=== PATIENT | male | born 1955 | race African-American/Black ===

== ENCOUNTER 2024-02-05 14:17 | Outpatient (RCR) | payer OTHER, SELFPAY ==
--- NOTE | 2024-02-15 22:41 | CTCFLWUP_ITS ---
Patient: ZENA AZAR : 1955 Page 6 of 8 FOLLOW UP NOTE DATE OF SERVICE: 02/05/2024 NAME: ZENA AZAR ACCOUNT: [id number] : 1955 AGE: 68 INTERVAL HISTORY: Doing well with no new complaints ONCOLOGY HISTORY: DIAGNOSIS: Malignant neoplasm of prostate [ICD10] C61 DATE OF DIAGNOSIS: 06/17/2012 STAGE/TNM: UNK T3NOS NX M0 TREATMENT HISTORY: Care?Plan Start?Date Cycle Day Intent Lupron?22.5?mg?q?3?mon 11/21/2022 1 90 Curative?(adjuvant) Xgeva?120?mg?q?monthly?for?3?months,?followed?by?q?3?months 03/13/2023 1 90 Palliative HISTORY OF PRESENT ILLNESS: Zena Azar is a 68-year-old ENG speaking male has the following oncology history. 06/17/2012: PSA 7.7. Biopsy of the prostate showed [place] score 7 prostate cancer with tumor encroach ing into adipose tissue suggestive of extraprostatic tissue. Perineural invasion was present. 10/26/2012 - 12/21/2012: Mr. Azar was treated with radiation therapy to the prostate here at [facility]. 09/06/2021: PSA 4.73. 12/03/2021: Mr. Azar had CAT scan of the abdomen and pelvis which did not show any obvious metastati c disease. 12/05/2021: Bone scan? 12/07/2021: X-ray of the bilateral hips, pelvis? 02/21/2022: Mr. Azar had a robotic salvage radical prostatectomy: Bilateral pelvic lymph node dissecti on: Bilateral double-J stent placement 04/11/2022: Mr. Azar received first dose of adjuvant Lupron injection. 04/25/2022: PSA less than 0.1 07/17/2022: Mr. Azar received second dose of adjuvant Lupron injection 12/31/2022: Bone scan? 08/08/2003: PSA less than 0.04. OTHER MEDICAL HISTORY/CONDITIONS: DIABETES??PROSTATE?CA PROSTECTECTOMY ?Clone Other Med Hx? FAMILY HISTORY: Patient?denies?family?cancer?history. ?Clone Family Hx? SOCIAL HISTORY: Occupational?History:?RETIRED Education?Level:?Completed High School Marital?Status:? Tobacco?Pack?per?Day:?0 Tobacco?Use?Years:?20 Tobacco?Use:?8?QUIT ETOH?Use:?ETOH/?NOW?CLEAN??X?8?YRS Drug?Note:?PCP [facility] / 13 YRS Social?History?Note:?LIVES?WITH? ?Clone Social Hx? MEDICATIONS: 1. alogliptin - 25 mg 1 tab Twice a Day 2. amlodipine - 5 mg Daily 3. aspirin - 81 mg 1 Capsule Daily 4. atorvastatin - 10 mg 1 tab Daily 5. Capoten - 25 mg Daily 6. Citracal + D Slow Release - 600 mg-12.5 mcg (500 unit) 1 tab one tab po twice a day 7. gabapentin - 100 mg Three times a day 8. hydrochlorothiazide - 25 mg 2 tab Daily 9. Jardiance - 10 mg Daily 10. meloxicam - 15 mg Daily 11. metFORMIN - 1,000 mg 1 tab Twice a Day 12. SUMAtriptan succinate - 50 mg 1 tab As directed 13. Vitamin D3 - 1,000 unit 1 Capsule 14. Xtandi - 40 mg 4 tab Daily?Palabra Meds? Medications Last Reconciled by Janet Ahn MA on 02/05/2024 ALLERGIES: No Known Drug Allergies; [id number]; NKA* REVIEW OF SYSTEMS: A complete 14-point review of systems was performed and is negative except as noted in interval histo ry. PHYSICAL EXAMINATION: VITAL SIGNS: PAIN: 0 - No pain ECOG Performance Status: 0 - Asymptomatic and fully active GENERAL APPEARANCE: Appears well, in no apparent distress, appropriately interactive. HEENT: Normocephalic, no temporal wasting, normal conjunctiva, no scleral icterus, normal hearing, li ps without lesions, neck normal range of motion. CARDIOVASCULAR: Not assessed. PULMONARY: Normal respiratory effort, no respiratory distress or use of accessory muscles, speaking i n full sentences, no tachypnea. EXTREMITIES: No pedal edema or cyanosis. SKIN: Normal skin appearance. NEUROLOGIC: Alert and oriented x4. PSHYCHIATRIC: Appropriate affect, mood normal, behavior normal, intact thought and speech. LABORATORY DATA: I have personally reviewed and interpreted each of the patient?s relevant lab tests, abnormal finding s are below: Date 07/11/22 ??GLUCOSE,RANDOM?(mg/dL) 111?H ??BLOOD?UREA?NITROGEN?(mg/dL) 21 ??CREATININE?(mg/dL) 1.00 ??SODIUM?(mmol/L) 141 ??POTASSIUM?(mmol/L) 4.1 ??CHLORIDE?(mmol/L) 105 ??CrCl?(CandG)?(ml/min) 89.51 ??AST/SGOT?(Unit/L) 20 ??ALT/SGPT?(Unit/L) 33 ??ALKALINE?PHOSPHATASE?(Unit/L) 58 ??BILIRUBIN,?TOTAL?(mg/dL) 0.4 ??PROTEIN?TOTAL?(gm/dl) 7.9 ??ALBUMIN,?SERUM?(gm/dl) 4.8 ??GLOBULIN?(gm/dl) 3.1 ??ALBUMIN/GLOBULIN?RATIO 1.5 ??CALCIUM,?SERUM?(mg/dL) 10.3 ??CALCIUM?SERUM?(CORRECTED)?(mg/dL) 10.3?H ASSESSMENT/PLAN: 1. Prostatic adenocarcinoma locally recurrent group 5, Mari[place] score 9 with extensive extraprostatic extension and with involvement of bilateral seminal vesicles. Multifocal surgical margin positive. 2. S/p radical prostatectomy with pelvic node dissection (02/21/2022. 3. S/p radiation therapy to the prostate for prostate cancer (10/26/2012 - 12/21/2012) 4. Mr. Azar is clinically doing well without any complaints. 5. PSA drawn on 08/08/2023 showed it to be less than 0.04. 6. He had bone scan as well as PET/CT scan done at [facility] in June 2023. I do not have the reports. 7. Bone scan done on 12/31/2022 showed progression of the osseous metastatic disease. It was compare d to previous bone scan done on December 05, 2021. 8. He did not have any PSA drawn. 9. Currently Mr. Azar is on Lupron injections. 1. Will try to get bone scan as well as PET/CT scan reports from [facility]. 2. Continue Lupron, Xgeva as well as Xtandi. ORDERS: Bone scan CBC CMP PSA RETURN TO CLINIC: I will see him back in the clinic in 2 months. BILLING AND COMPLIANCE: I reviewed external records from providers outside my specialty as summarized above. I spent a total of 50 minutes on this patient?s care on the day of their visit excluding time spent related to any bi lled procedures. This time includes time spent with the patient as well as time spent documenting in the medical record, reviewing patients records and tests, obtaining history, placing orders, communi cating with other healthcare professionals, counseling the patient, family or caregiver, and/or care coordination for the diagnoses above. Electronically Signed by: Yoan Toledo MD T: 10:38 PM CC: PCP: Referring: Gonzalez Read This document was completed utilizing speech recognition software. Grammatical errors, random word in sertions, pronoun errors, and incomplete sentences are an occasional consequence of this system due t o software limitations, ambient noise, and hardware issues. Any formal questions or concerns about th e content, text or information contained within the body of this dictation should be directly address ed to the provider for clarification.
== END 2024-02-17 23:59 | disposition home or self-care (01) ==
LOC: SCTC 14:17
PROVIDERS: PCP Family Medicine; Referring Provider Family Medicine; Visit Provider Internal Medicine Hematology & Oncology
DX: C61 Malignant neoplasm of prostate (principal); C79.51 Secondary malignant neoplasm of bone; Z90.79 Acquired absence of other genital organ(s); Z79.818 Long term (current) use of other agents affecting estrogen receptors and estrogen levels; Z92.3 Personal history of irradiation
CPT/HCPCS: 99212; G0463

== ENCOUNTER → 2024-03-02 | Outpatient (BNVA) | payer OTHER, SELFPAY | END | disposition home or self-care (01) | PROVIDERS: PCP Family Medicine; Referring Provider Family Medicine; Visit Provider Urology | DX: C61 Malignant neoplasm of prostate (principal); Z92.3 Personal history of irradiation; I10 Essential (primary) hypertension; E11.9 Type 2 diabetes mellitus without complications | CPT/HCPCS: 81003; 99212; G0463 ==

== ENCOUNTER 2024-03-15 08:50 | Outpatient (RCR) | payer OTHER, SELFPAY | END 2024-03-19 23:59 | disposition home or self-care (01) | LOC: SCTC 08:50 | PROVIDERS: PCP Family Medicine; Referring Provider Family Medicine; Visit Provider Radiology Therapeutic Radiology | DX: Z51.11 Encounter for antineoplastic chemotherapy (principal); C61 Malignant neoplasm of prostate; Z90.79 Acquired absence of other genital organ(s); Z92.3 Personal history of irradiation; Z79.818 Long term (current) use of other agents affecting estrogen receptors and estrogen levels | CPT/HCPCS: 96402; J9217 ==

== ENCOUNTER 2024-03-25 09:53 | Outpatient (RCR) | payer OTHER, SELFPAY | END 2024-04-16 23:59 | disposition home or self-care (01) | LOC: SCTC 09:53 | PROVIDERS: PCP Internal Medicine Hematology; Referring Provider Radiology Therapeutic Radiology; Visit Provider Radiology Therapeutic Radiology | DX: C61 Malignant neoplasm of prostate (principal); Z90.79 Acquired absence of other genital organ(s); Z92.3 Personal history of irradiation; Z79.818 Long term (current) use of other agents affecting estrogen receptors and estrogen levels | CPT/HCPCS: 96372; J0897 ==

== ENCOUNTER 2024-05-27 13:56 | Outpatient (RCR) | payer OTHER, SELFPAY | END 2024-06-16 23:59 | disposition home or self-care (01) | LOC: SCTC 13:56 | PROVIDERS: PCP Internal Medicine Hematology; Referring Provider Internal Medicine Hematology; Visit Provider Nurse Practitioner Family | DX: C61 Malignant neoplasm of prostate (principal); C79.51 Secondary malignant neoplasm of bone; Z79.818 Long term (current) use of other agents affecting estrogen receptors and estrogen levels; Z90.79 Acquired absence of other genital organ(s); Z92.3 Personal history of irradiation | CPT/HCPCS: 99212; G0463 ==

== ENCOUNTER → 2024-05-31 | Outpatient (BNVA) | payer OTHER, SELFPAY | END | disposition home or self-care (01) | PROVIDERS: PCP Family Medicine; Referring Provider Family Medicine; Visit Provider Urology | DX: C61 Malignant neoplasm of prostate (principal); R32 Unspecified urinary incontinence; Z90.79 Acquired absence of other genital organ(s); Z92.3 Personal history of irradiation; N52.9 Male erectile dysfunction, unspecified; E11.9 Type 2 diabetes mellitus without complications; I10 Essential (primary) hypertension | CPT/HCPCS: 81003; 99212; G0463 ==

== ENCOUNTER 2024-06-24 13:59 | Outpatient (RCR) | payer OTHER, SELFPAY | END 2024-07-17 23:59 | disposition home or self-care (01) | LOC: SCTC 13:59 | PROVIDERS: PCP Family Medicine; Referring Provider Family Medicine; Visit Provider Radiology Therapeutic Radiology | DX: Z51.11 Encounter for antineoplastic chemotherapy (principal); C61 Malignant neoplasm of prostate; C79.51 Secondary malignant neoplasm of bone; Z90.79 Acquired absence of other genital organ(s); Z92.3 Personal history of irradiation | CPT/HCPCS: 96372; 96402; J0897; J9217 ==

== ENCOUNTER → 2024-08-30 | Outpatient (BNVA) | payer OTHER, SELFPAY | END | disposition home or self-care (01) | PROVIDERS: PCP Family Medicine; Referring Provider Family Medicine; Visit Provider Urology | DX: C61 Malignant neoplasm of prostate (principal); Z92.3 Personal history of irradiation; N39.3 Stress incontinence (female) (male); N52.9 Male erectile dysfunction, unspecified; E11.9 Type 2 diabetes mellitus without complications; I10 Essential (primary) hypertension | CPT/HCPCS: 99212; G0463 ==

== ENCOUNTER 2024-09-30 13:15 | Outpatient (RCR) | payer OTHER, SELFPAY ==
--- NOTE | 2024-09-29 14:43 | CTCFLWUP_ITS ---
Patient: ZENA AZAR : 1955 Page 6 of 8 FOLLOW UP NOTE DATE OF SERVICE: 09/29/2024 NAME: ZENA AZAR ACCOUNT: [id number] : 1955 AGE: 69 INTERVAL HISTORY: Patient comes with nonhealing wound noted on his chin. Patient was recently tested and ruled out to have any skin cancer. Patient says this wound is nonhealing since that time he got his teeth extracted. Patient as per notes was supposed to be taking Xtandi along with Lupron. Per patient he stopped taking Xtandi as he was advised by some physician. Patient does not remember why and when he stopped taking his Xtandi. Last [facility] PET scan was in June 2024 and it showed a spot in the chest which was mildly active. Otherwise no other metastatic disease was noted ONCOLOGY HISTORY: DIAGNOSIS: Malignant neoplasm of prostate [ICD10] C61 DATE OF DIAGNOSIS: 06/17/2012 STAGE/TNM: UNK T3NOS NX M0 TREATMENT HISTORY: Care?Plan Start?Date Cycle Day Intent Lupron?22.5?mg?q?3?mon 11/21/2022 1 90 Curative?(adjuvant) Xgeva?120?mg?q?monthly?for?3?months,?followed?by?q?3?months 03/13/2023 1 90 Palliative HISTORY OF PRESENT ILLNESS: Zena Azar is a 69-year-old ENG speaking male has the following oncology history. 06/17/2012: PSA 7.7. Biopsy of the prostate showed Mariya score 7 prostate cancer with tumor encroaching into adipose tissue suggestive of extraprostatic tissue. Perineural invasion was present. 10/26/2012 - 12/21/2012: Mr. Azar was treated with radiation therapy to the prostate here at [facility]. 09/06/2021: PSA 4.73. 12/03/2021: Mr. Azar had CAT scan of the abdomen and pelvis which did not show any obvious metastatic disease. 12/05/2021: Bone scan? 12/07/2021: X-ray of the bilateral hips, pelvis? 02/21/2022: Mr. Azar had a robotic salvage radical prostatectomy: Bilateral pelvic lymph node dissection: Bilateral double-J stent placement 04/11/2022: Mr. Azar received first dose of adjuvant Lupron injection. 04/25/2022: PSA less than 0.1 07/17/2022: Mr. Azar received second dose of adjuvant Lupron injection 12/31/2022: Bone scan? 08/08/2003: PSA less than 0.04. OTHER MEDICAL HISTORY/CONDITIONS: DIABETES??PROSTATE?CA PROSTECTECTOMY FAMILY HISTORY: Patient?denies?family?cancer?history. SOCIAL HISTORY: Occupational?History:?RETIRED Education?Level:?Completed High School Marital?Status:? Tobacco?Pack?per?Day:?0 Tobacco?Use?Years:?20 Tobacco?Use:?8?QUIT ETOH?Use:?ETOH/?NOW?CLEAN??X?8?YRS Drug?Note:?PCP [facility] / 13 YRS Social?History?Note:?LIVES?WITH? MEDICATIONS: 1. alogliptin - 25 mg 1 tab Twice a Day 2. amlodipine - 5 mg Daily 3. aspirin - 81 mg 1 Capsule Daily 4. atorvastatin - 10 mg 1 tab Daily 5. Capoten - 25 mg Daily 6. Citracal + D Slow Release - 600 mg-12.5 mcg (500 unit) 1 tab one tab po twice a day 7. gabapentin - 100 mg Three times a day 8. hydrochlorothiazide - 25 mg 2 tab Daily 9. Jardiance - 10 mg Daily 10. meloxicam - 15 mg Daily 11. metFORMIN - 1,000 mg 1 tab Twice a Day 12. SUMAtriptan succinate - 50 mg 1 tab As directed 13. Vitamin D3 - 1,000 unit 1 Capsule 14. Xtandi - 40 mg 4 tab Daily 15. Xtandi - 80 mg 2 tab 2 tabs daily Medications Last Reconciled by Janet Mitchell MD on 09/29/2024 ALLERGIES: No Known Drug Allergies; [id number]; NKA* REVIEW OF SYSTEMS: A complete 14-point review of systems was performed and is negative except as noted in interval history. PHYSICAL EXAMINATION: VITAL SIGNS: Temperature?97.6, B/P?101/63, Oxygen?Saturation?96% Weight?185?lbs PAIN: 0 - No pain ECOG Performance Status: None GENERAL APPEARANCE: Appears well, in no apparent distress, appropriately interactive. HEENT: Normocephalic, no temporal wasting, normal conjunctiva, no scleral icterus, normal hearing, lips without lesions, neck normal range of motion. CARDIOVASCULAR: Not assessed. PULMONARY: Normal respiratory effort, no respiratory distress or use of accessory muscles, speaking in full sentences, no tachypnea. EXTREMITIES: No pedal edema or cyanosis. SKIN: Normal skin appearance. Nonhealing wound on the chin. NEUROLOGIC: Alert and oriented x4. PSHYCHIATRIC: Appropriate affect, mood normal, behavior normal, intact thought and speech. LABORATORY DATA: I have personally reviewed and interpreted each of the patient?s relevant lab tests, abnormal findings are below: Date 07/11/22 ??WHITE?BLOOD?COUNT?(Thou/mm3) 7.7 ??RED?BLOOD?COUNT?(Miln/mm3) 4.67 ??HEMOGLOBIN?(gm/dl) 13.2?L ??HEMATOCRIT?(%) 40.4?L ??PLATELET?COUNT?(Thou/mm3) 235 ??NEUTROPHILS?%,?AUTO?(%) 55 ??LYMPH?%,?AUTO?(%) 33 ??NEUTROPHILS,?AUTO?(Thou/mm3) 4.2 ??GLUCOSE,RANDOM?(mg/dL) 111?H ??BLOOD?UREA?NITROGEN?(mg/dL) 21 ??CREATININE?(mg/dL) 1.00 ??SODIUM?(mmol/L) 141 ??POTASSIUM?(mmol/L) 4.1 ??CHLORIDE?(mmol/L) 105 ??CrCl?(CandG)?(ml/min) 89.51 ??AST/SGOT?(Unit/L) 20 ??ALT/SGPT?(Unit/L) 33 ??ALKALINE?PHOSPHATASE?(Unit/L) 58 ??BILIRUBIN,?TOTAL?(mg/dL) 0.4 ??PROTEIN?TOTAL?(gm/dl) 7.9 ??ALBUMIN,?SERUM?(gm/dl) 4.8 ??GLOBULIN?(gm/dl) 3.1 ??ALBUMIN/GLOBULIN?RATIO 1.5 ??CALCIUM,?SERUM?(mg/dL) 10.3 ??CALCIUM?SERUM?(CORRECTED)?(mg/dL) 10.3?H ASSESSMENT/PLAN: 1. Prostatic adenocarcinoma locally recurrent group 5, [place] score 9 with extensive extraprostatic extension and with involvement of bilateral seminal vesicles. Multifocal surgical margin positive. S/p radical prostatectomy with pelvic node dissection (02/21/2022. S/p radiation therapy to the prostate for prostate cancer (10/26/2012 - 12/21/2012) Mr. Azar is clinically doing well without any complaints. PSA drawn on 05/25/2024 showed it to be less than 0.04. He had bone scan as well as PET/CT scan done at [facility] in June 2023. I do not have the reports. Bone scan done on 12/31/2022 showed progression of the osseous metastatic disease. It was compared to previous bone scan done on December 05, 2021. Reviewed [facility] PET scan from June 2024 and shows 1 lesion which was active in the chest. Recommendation was to do the biopsy. Patient is yet to follow on that. Patient and his are planning to see the physicians at [facility] Advised him to start restart taking his Xtandi 160 mg along with Lupron I will stop Xgeva No necrosis of the jaw noted Bone appears well Patient was held from Xgeva till March .. Patient has been receiving Xgeva since March 2024 I will continue to hold it until patient has healing of his skin. Advised to let air dry and use Betadine as needed Advised to follow-up with the plastics in [facility] in 2 weeks after starting the Xtandi Labs reviewed stable Patient to come to the clinic if he has any side effects For first month repeat labs every month RTC at 2 weeks 4 weeks and 2 months ORDERS: Order # Description [id number] Comprehensive Metabolic Panel - 12 + CBC with Auto Diff + PSA [id number] Comprehensive Metabolic Panel - 12 + CBC with Auto Diff + MD Follow Up 4 Week [id number] Comprehensive Metabolic Panel - 12 + CBC with Auto Diff + PSA + MD Follow Up 3 Months RETURN TO CLINIC: I reviewed the diagnosis, prognosis, and recommended treatment/procedure options with the patient (and/or their legal medicare sales representative), including the potential benefits, risks, side effects and alternative therapies. We also discussed the option of no treatment and the possibility of clinical trial participation, if applicable. All questions were addressed, and they demonstrated understanding. They provided informed consent to proceed with the proposed plan of care. BILLING AND COMPLIANCE: I reviewed external records from providers outside my specialty as summarized above. I spent a total of 50 minutes on this patient?s care on the day of their visit excluding time spent related to any billed procedures. This time includes time spent with the patient as well as time spent documenting in the medical record, reviewing patients records and tests, obtaining history, placing orders, communicating with other healthcare professionals, counseling the patient, family or caregiver, and/or care coordination for the diagnoses above. Electronically Signed by: {Object.Sanct_ID*[email or web address]@M}, {Object.Sanct_ID*PnP.Suffix@U} D: {Object.Sanct_Date} T: {Object.Sanct_Time} CC: PCP: Gonzalez Read Referring: Gonzalez Read This document was completed utilizing speech recognition software. Grammatical errors, random word insertions, pronoun errors, and incomplete sentences are an occasional consequence of this system due to software limitations, ambient noise, and hardware issues. Any formal questions or concerns about the content, text or information contained within the body of this dictation should be directly addressed to the provider for clarification.
== END 2024-10-17 23:59 | disposition home or self-care (01) ==
LOC: SCTC 13:15
PROVIDERS: PCP Family Medicine; Referring Provider Family Medicine; Visit Provider Internal Medicine Hematology & Oncology
DX: Z51.11 Encounter for antineoplastic chemotherapy (principal); C61 Malignant neoplasm of prostate; Z90.79 Acquired absence of other genital organ(s); Z92.3 Personal history of irradiation; Z79.818 Long term (current) use of other agents affecting estrogen receptors and estrogen levels
CPT/HCPCS: 96402; 99212; J9217; G0463

== ENCOUNTER 2024-11-29 14:51 | Outpatient (RCR) | payer OTHER, SELFPAY ==
--- NOTE | 2024-12-13 00:21 | CTCFLWUP_ITS ---
Patient: ZENA AZAR : 1955 Page 7 of 8 FOLLOW UP NOTE DATE OF SERVICE: 11/29/2024 NAME: ZENA AZAR ACCOUNT: [id number] : 1955 AGE: 69 INTERVAL HISTORY: Patient comes with nonhealing wound noted on his chin. Patient was recently tested and ruled out to have any skin cancer. Patient says this wound is healing since he stopped shaving. Last [facility] PET scan was in June 2024 and it showed a spot in the chest which was mildly active. Otherwise no other metastatic disease was noted ONCOLOGY HISTORY: DIAGNOSIS: Malignant neoplasm of prostate [ICD10] C61 DATE OF DIAGNOSIS: 06/17/2012 STAGE/TNM: UNK T3NOS NX M0 TREATMENT HISTORY: Care?Plan Start?Date Cycle Day Intent Lupron?22.5?mg?q?3?mon 11/21/2022 1 90 Curative?(adjuvant) Xgeva?120?mg?q?monthly?for?3?months,?followed?by?q?3?months 03/13/2023 1 90 Palliative Xgeva?120?mg?q?monthly?for?3?months,?followed?by?q?3?months 09/29/2024 1 90 Palliative HISTORY OF PRESENT ILLNESS: Zena Azar is a 69-year-old ENG speaking male has the following oncology history. 06/17/2012: PSA 7.7. Biopsy of the prostate showed [place] score 7 prostate cancer with tumor encroaching into adipose tissue suggestive of extraprostatic tissue. Perineural invasion was present. 10/26/2012 - 12/21/2012: Mr. Azar was treated with radiation therapy to the prostate here at [facility]. 09/06/2021: PSA 4.73. 12/03/2021: Mr. Azar had CAT scan of the abdomen and pelvis which did not show any obvious metastatic disease. 12/05/2021: Bone scan? 12/07/2021: X-ray of the bilateral hips, pelvis? 02/21/2022: Mr. Azar had a robotic salvage radical prostatectomy: Bilateral pelvic lymph node dissection: Bilateral double-J stent placement 04/11/2022: Mr. Azar received first dose of adjuvant Lupron injection. 04/25/2022: PSA less than 0.1 07/17/2022: Mr. Azar received second dose of adjuvant Lupron injection 12/31/2022: Bone scan? 08/08/2003: PSA less than 0.04. OTHER MEDICAL HISTORY/CONDITIONS: DIABETES??PROSTATE?CA PROSTECTECTOMY FAMILY HISTORY: Patient?denies?family?cancer?history. SOCIAL HISTORY: Occupational?History:?RETIRED Education?Level:?Completed High School Marital?Status:? Tobacco?Pack?per?Day:?0 Tobacco?Use?Years:?20 Tobacco?Use:?8?QUIT ETOH?Use:?ETOH/?NOW?CLEAN??X?8?YRS Drug?Note:?PCP [facility]AN / 13 YRS Social?History?Note:?LIVES?WITH? MEDICATIONS: 1. alogliptin - 25 mg 1 tab Twice a Day 2. amlodipine - 5 mg Daily 3. aspirin - 81 mg 1 Capsule Daily 4. atorvastatin - 10 mg 1 tab Daily 5. Capoten - 25 mg Daily 6. Citracal + D Slow Release - 600 mg-12.5 mcg (500 unit) 1 tab one tab po twice a day 7. gabapentin - 100 mg Three times a day 8. hydrochlorothiazide - 25 mg 2 tab Daily 9. Jardiance - 10 mg Daily 10. meloxicam - 15 mg Daily 11. metFORMIN - 1,000 mg 1 tab Twice a Day 12. SUMAtriptan succinate - 50 mg 1 tab As directed 13. Vitamin D3 - 1,000 unit 1 Capsule 14. Xtandi - 80 mg 2 tab Daily Medications Last Reconciled by Janet Mitchell MD on 11/29/2024 ALLERGIES: No Known Drug Allergies; [id number]; NKA* REVIEW OF SYSTEMS: A complete 14-point review of systems was performed and is negative except as noted in interval history. PHYSICAL EXAMINATION: VITAL SIGNS: Temperature?99, B/P?139/98, Oxygen?Saturation?96% PAIN: 0 - No pain ECOG Performance Status: 0 - Asymptomatic and fully active GENERAL APPEARANCE: Appears well, in no apparent distress, appropriately interactive. HEENT: Normocephalic, no temporal wasting, normal conjunctiva, no scleral icterus, normal hearing, lips without lesions, neck normal range of motion. CARDIOVASCULAR: Not assessed. PULMONARY: Normal respiratory effort, no respiratory distress or use of accessory muscles, speaking in full sentences, no tachypnea. EXTREMITIES: No pedal edema or cyanosis. SKIN: Normal skin appearance. Nonhealing wound on the chin. NEUROLOGIC: Alert and oriented x4. PSHYCHIATRIC: Appropriate affect, mood normal, behavior normal, intact thought and speech. LABORATORY DATA: I have personally reviewed and interpreted each of the patient?s relevant lab tests, abnormal findings are below: Date 07/11/22 ??WHITE?BLOOD?COUNT?(Thou/mm3) 7.7 ??RED?BLOOD?COUNT?(Miln/mm3) 4.67 ??HEMOGLOBIN?(gm/dl) 13.2?L ??HEMATOCRIT?(%) 40.4?L ??PLATELET?COUNT?(Thou/mm3) 235 ??NEUTROPHILS?%,?AUTO?(%) 55 ??LYMPH?%,?AUTO?(%) 33 ??NEUTROPHILS,?AUTO?(Thou/mm3) 4.2 ??GLUCOSE,RANDOM?(mg/dL) 111?H ??BLOOD?UREA?NITROGEN?(mg/dL) 21 ??CREATININE?(mg/dL) 1.00 ??SODIUM?(mmol/L) 141 ??POTASSIUM?(mmol/L) 4.1 ??CHLORIDE?(mmol/L) 105 ??CrCl?(CandG)?(ml/min) 89.51 ??AST/SGOT?(Unit/L) 20 ??ALT/SGPT?(Unit/L) 33 ??ALKALINE?PHOSPHATASE?(Unit/L) 58 ??BILIRUBIN,?TOTAL?(mg/dL) 0.4 ??PROTEIN?TOTAL?(gm/dl) 7.9 ??ALBUMIN,?SERUM?(gm/dl) 4.8 ??GLOBULIN?(gm/dl) 3.1 ??ALBUMIN/GLOBULIN?RATIO 1.5 ??CALCIUM,?SERUM?(mg/dL) 10.3 ??CALCIUM?SERUM?(CORRECTED)?(mg/dL) 10.3?H ASSESSMENT/PLAN: 1. Prostatic adenocarcinoma locally recurrent group 5, Mariya score 9 with extensive extraprostatic extension and with involvement of bilateral seminal vesicles. Multifocal surgical margin positive. S/p radical prostatectomy with pelvic node dissection (02/21/2022. S/p radiation therapy to the prostate for prostate cancer (10/26/2012 - 12/21/2012) Mr. Azar is clinically doing well without any complaints. PSA drawn on 05/25/2024 showed it to be less than 0.04. He had bone scan as well as PET/CT scan done at [facility] in June 2023. I do not have the reports. Bone scan done on 12/31/2022 showed progression of the osseous metastatic disease. It was compared to previous bone scan done on December 05, 2021. Reviewed [facility] PET scan from June 2024 and shows 1 lesion which was active in the chest. Recommendation was to do the biopsy. Patient is yet to follow on that. Patient and his are planning to see the physicians at [facility] Continue taking his Xtandi 160 mg along with Lupron Continue to hold Xgeva Continue calcium and vitamin D ORDERS: Order # Description [id number] Comprehensive Metabolic Panel - 12 + CBC with Auto Diff + PSA + MD Follow Up 6 Month RETURN TO CLINIC: I reviewed the diagnosis, prognosis, and recommended treatment/procedure options with the patient (and/or their legal outbound sales representative), including the potential benefits, risks, side effects and alternative therapies. We also discussed the option of no treatment and the possibility of clinical trial participation, if applicable. All questions were addressed, and they demonstrated understanding. They provided informed consent to proceed with the proposed plan of care. BILLING AND COMPLIANCE: I reviewed external records from providers outside my specialty as summarized above. I spent a total of 50 minutes on this patient?s care on the day of their visit excluding time spent related to any billed procedures. This time includes time spent with the patient as well as time spent documenting in the medical record, reviewing patients records and tests, obtaining history, placing orders, communicating with other healthcare professionals, counseling the patient, family or caregiver, and/or care coordination for the diagnoses above. Electronically Signed by: {Object.Sanct_ID*PnP.NameFL@M}, {Object.Sanct_ID*PnP.Suffix@U} D: {Object.Sanct_Date} T: {Object.Sanct_Time} CC: PCP: Gonzalez Read Referring: Gonzalez Read This document was completed utilizing speech recognition software. Grammatical errors, random word insertions, pronoun errors, and incomplete sentences are an occasional consequence of this system due to software limitations, ambient noise, and hardware issues. Any formal questions or concerns about the content, text or information contained within the body of this dictation should be directly addressed to the provider for clarification.
== END 2024-12-17 23:59 | disposition home or self-care (01) ==
LOC: SCTC 14:51
PROVIDERS: PCP Family Medicine; Referring Provider Family Medicine; Visit Provider Internal Medicine Hematology & Oncology
DX: C61 Malignant neoplasm of prostate (principal); C79.51 Secondary malignant neoplasm of bone; Z90.79 Acquired absence of other genital organ(s)
CPT/HCPCS: 99212; G0463